=== PATIENT | male | born 1980 | race Two or more races ===

== ENCOUNTER 2021-02-26 07:20 | Emergency (ER) | payer BC, MEDICAID ==
[~2021-02-26] VITALS: Ht 170.2 cm; Wt 106.6 kg
--- NOTE | 2021-02-26 07:20 | NUR ---
PT BIBRA 839 FROM HOME C/O HEARING VOICES DENIES HI/SI. PT IS AAOX3, NOT IN RESPIRATORY DISTRESS, V/S STABLE, KEPT RESTED AND COMFORTABLE. WILL CONTINUE TO MONITOR.
--- NOTE | 2021-02-26 07:25 | NUR ---
SEEN AND EXAMINED BY .
--- NOTE | 2021-02-26 07:35 | NUR ---
ER PHLEB AT BEDSIDE FOR BLOOD DRAW.
[2021-02-26 07:49] LABS: BASOPHILS # (AUTO) 0.1 K/uL (0.0-0.2); BASOPHILS % (AUTO) 0.6 % (0.0-2.0); EOSINOPHILS % (AUTO) 0.6 % (0.0-6.0); HEMATOCRIT 43 % (39-51); HEMOGLOBIN 14.6 g/dL (13.5-17.5); LYMPHOCYTES # (AUTO) 1.7 K/uL (0.8-4.8); MEAN CORPUSCULAR HGB CONC 34 g/dl (31.0-36.0); MEAN CORPUSCULAR VOLUME 86 fL (80-96); MONOCYTES # (AUTO) 0.7 K/uL (0.1-1.30); MONOCYTES % (AUTO) 7.1 % (2.0-12.0); NEUTROPHILS # (AUTO) 6.9 K/uL (1.8-8.9); NEUTROPHILS % (AUTO) 73.7 % (43.0-81.0); PLATELET COUNT (AUTO) 189 K/uL (150-450); RED BLOOD CELL COUNT(AUTO) 5.06 MIL/uL (4.5-6.0); WHITE BLOOD COUNT (AUTO) 9.4 K/uL (4.3-11.0)
[2021-02-26 07:58] LABS: CALCIUM, SERUM 8.5 mg/dL (8.5-10.1); CARBON DIOXIDE 31 mmol/L (21-32); CHLORIDE 100 mmol/L (98-107); CREATININE 1.3 mg/dL (0.6-1.3); GLUCOSE 99 mg/dL (74-106); POTASSIUM 3.9 mmol/L (3.5-5.1); SODIUM SERUM 136 mmol/L (136-145); UREA NITROGEN, BLOOD 13 mg/dL (7-18)
--- NOTE | 2021-02-26 08:05 | NUR ---
COVID SWAB DONE AND SENT TO THE LAB
[2021-02-26 08:10] LABS: ALANINE AMINOTRANSFERASE 58 U/L (12-78); ALBUMIN 4.2 g/dL (3.4-5.0); ALKALINE PHOSPHATASE 42 U/L (46-116); ASPARTATE AMINOTRANSFERASE 32 U/L (15-37); BILIRUBIN,DIRECT 0.1 mg/dL (0.0-0.2); BILIRUBIN,TOTAL 0.5 mg/dL (0.2-1.0); TOTAL PROTEIN, SERUM 7.7 g/dL (6.4-8.2)
[2021-02-26 08:11] LABS: ACETAMINOPHEN 0 ug/ml (10-30); ALCOHOL, BLOOD < 3 mg/dL (0-0)
--- NOTE | 2021-02-26 08:15 | NUR ---
THE PATIENT ALERT AND ORIENTED X4. DENIES PAIN. IN ROOM AIR AND DENIES SOB. RESPIRATION REGULAR AND UNLABORED. SITTER AT THE BEDSIDE. WILL CONTINUE TO MONITOR THE PATIENT.
[2021-02-26 08:18] LABS: BILIRUBIN,URINE Negative (NEGATIVE); COLOR,URINE YELLOW (YELLOW); LEUKOCYTE ESTERASE ,URINE Negative (NEGATIVE); NITRITE, URINE Negative (NEGATIVE); PH,URINE 5.5 (5.0-8.0); PROTEIN,URINE Trace mg/dl (NEGATIVE); UGLUCOSE Negative (NEGATIVE); UROBILINOGEN,URINE 0.2 EU/dL (0.2)
[2021-02-26] MEDS ORDERED: ALPRAZOLAM 0.5 MG TABLET ONE (08:27)
[2021-02-26] MEDS ORDERED: ALPRAZOLAM 0.5 MG TABLET PO ONE (08:30)
[2021-02-26 08:32] LABS: BACTERIA,URINE Few /HPF (None Seen); RBC,URINE 0-2 /HPF (0-2); WBC,URINE 0-2 /HPF (0-3)
[2021-02-26 08:33] LABS: HYALINE CASTS, URINE Few /LPF (None Seen); SQUAMOUS EPITHELIAL CELL,UR Rare /HPF (None Seen)
--- NOTE | 2021-02-26 09:00 | NUR ---
THE MOTHER AT THE BEDSIDE
--- NOTE | 2021-02-26 09:35 | NUR ---
CALLED JANET [phone] CHRIS IS COVERING. CALLED CHRIS [phone]
--- NOTE | 2021-02-26 10:42 | NUR ---
Patient discharged to home in stable condition. Written and verbal after care instructions given to Patient and patient's mom verbalizes understanding of instruction.
[2021-02-26 10:45] VITALS: BP 127/88
== END 2021-02-26 10:46 | disposition home or self-care (01) ==
LOC: ER 07:26
DX: R44.0 Auditory hallucinations (principal); F41.9 Anxiety disorder, unspecified; Z20.822 Contact with and (suspected) exposure to COVID-19
CPT/HCPCS: 36415; 80048; 80076; 80143; 80307; 80320; 81001; 85025; 87426; 99283; C9803; G0480